=== PATIENT | female | born 1935 | race Caucasian/White ===

== ENCOUNTER → 2017-03-18 11:34 | Outpatient (CLI) | payer MEDICARE ==
[~2017-03-18 11:34] MED LIST: ASPIRIN EC81 M1 PO; CLARITIN 10 MG10 MG PO; FLAGYL500 MG PO; LEVAQUIN750 MG PO; NORVASC5 MG PO; OMEPRAZOLE40 MG PO; SPIRIVA18 MCG INH; TYLENOL W/CODEI1 TAB PO; ZOFRAN4 MG PO
[2017-04-30 11:01] VITALS: BMI 25.4
== END | disposition home or self-care (01) ==
LOC: D.RT 11:34
DX: J44.9 Chronic obstructive pulmonary disease, unspecified (principal)

== ENCOUNTER 2017-03-24 05:15 | Day surgery (SDC) | payer MEDICARE ==
[2017-03-23 10:15] LABS: BASOPHILS 0.4 % (0-2); EOSINOPHILS 0.6 % (0-7); HEMATOCRIT 40.4 % (36.0-48.0); HEMOGLOBIN 13.5 g/dL (12-16); IMMATURE GRANULOCYTES 0.1 % (0-5); LYMPHOCYTES 41.7 % (15-50); MCH 30.1 pg (26.0-34.0); MCHC 33.4 g/dL (31.0-37.0); MEAN PLATELET VOLUME 9.7 fL (7.4-10.4); MONOCYTES 6.3 % (2-11); NEUTROPHILS 50.9 % (40-80); PLATELET COUNT 223 10x3/uL (130-400); RBC 4.49 10x6/uL (4.00-5.40); RDW 12.9 % (11.5-14.5); WBC 6.7 10x3/uL (4.8-10.8)
[2017-03-23 10:30] LABS: CALCIUM 9.6 mg/dL (8.5-10.1); CARBON DIOXIDE 28.9 mmol/L (21.0-32.0); CREATININE - SERUM 0.8 mg/dL (0.6-1.3); POTASSIUM - SERUM 3.9 mmol/L (3.5-5.1)
[~2017-03-24 05:15] MED LIST changes: -FLAGYL500 MG PO; -LEVAQUIN750 MG PO; -TYLENOL W/CODEI1 TAB PO; -ZOFRAN4 MG PO
[2017-03-24 06:53] VITALS: BP 154/87; BMI 25.6
[2017-03-24] MEDS ORDERED: TYLENOL W/CODEI1 TAB PO (11:34)
--- NOTE | 2017-03-24 12:04 | OP ---
PATIENT NAME: MARCOS MACK MEDICAL RECORD: [id number] :34 LOCATION:D.OPS ADMISSION DATE: SURGEON: CHRIS GUARDADO MD DATE OF OPERATION: 03/24/2017 SURGEON: Chris Guardado MD ANESTHESIA: General anesthesia by Bryon Leggett CRNA. PREOPERATIVE DIAGNOSES: Incomplete bladder emptying and cystocele, grade II Gren[place]-Walker scale. PROCEDURE: Cystoscopy, urethral dilation to 34-Nauruan, and dissection for cystocele repair. The procedure was terminated due to injury to the bladder, which I repaired. BLOOD LOSS: Less than 100 mL. FINDINGS: Single ureteral orifices. Very large redundant bladder, grade II cystocele, bladder perforation close to but not involving the left ureteral orifice. CLINICAL HISTORY: This is an 81-year-old female, G4, P4, A0. She has a grade II Grenada-Walker scale cystocele and incomplete bladder emptying. 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 I sent her entered to the Gynecology, but she did not wish to have a pessary. She wanted to have a surgical repair. Risks of the procedure including risk of mesh infection, bleeding, pain, dyspareunia, and possible injury to adjacent organs such as the bladder or pelvic nerves was explained to the patient. Also, on her preoperative chest x-ray, there was noted some right lower lobe consolidation and hilar lymphadenopathy. She will probably need a chest CT as an outpatient. SHE IS ALLERGIC TO PENICILLIN. She was given Levaquin IV line controller to the OR. DESCRIPTION OF PROCEDURE: The patient was given induction of general anesthesia. She was then placed in dorsal lithotomy position and prepped and draped. I performed cystoscopy initially. A 17-Nauruan cystoscope was used with a 30-degree lens. We used normal saline for irrigation. She has single ureteral orifices. No bladder tumors were seen. I then dilated the urethra with sounds up to 34-Nauruan. At this point, we inserted a 16-Nauruan Aleman catheter and put it to bag drainage. A weighted speculum was placed to hold down the posterior vaginal wall. The labia majora were retracted laterally using #2 nylon sutures. These stay sutures were anchored to the medial thighs. The anterior vaginal wall was then infiltrated with Pitressin solution. Twenty units of Pitressin was dissolved in 100 mL of normal saline. This was injected in the anterior vaginal wall for hydrodissection. A transverse incision was made about 1 cm away from the urethral meatus at the level of the bladder neck. This was then dissected to free the bladder from the anterior vaginal wall. I noted that the bladder muscle was quite redundant. Also, it was seen to be rather soft and the tissues dissected away fairly easily just even with blunt dissection. We then perforated through the pubocervical fascia on each side. I was able to palpate the ischial spine on each side. The sacrospinous ligaments were anchored to the ischial spine and these formed our landmarks. I attempted to pass the graft arm of the [employer] OPERATIVE REPORT [id number] MARTINAMARCOS GANDHI Uphold graft using a Capio suture commercial front load driver through the sacrospinous ligament. This was performed on each side. I noted while attempting to pass the device that the bladder tissue kept getting stuck to the device and I had to use a finger to try to push the bladder tissue away. In passing the graft arms through, tension was put on the sutures and there was no sign that there was weak tissue that the suture was through. As I attempted to pull on the graft arms on each side to bring the graft down into position, I noticed that the graft arms were not through the sacrospinous ligaments, but we just at were through bladder muscle on each side. On the right side, I easily pulled the graft arm back out and freed it entirely. On the left side, the graft arm got stuck due to the presence of a clear plastic sheath material. In order to free the sheath, I had to divide the small band of muscle that was holding it in place. I used the Bovie to do this. Upon releasing the sheath with the Bovie, I noted immediately a gush of urine coming out of the bladder. Allis clamps were placed around the side of the bladder injury and I repaired the bladder injury site with 3-0 Vicryl. Running sutures were used. A cystoscopy was then performed again and I noted that the site of bladder injury was close to the left ureteral orifice. It did not involve the left ureteral orifice. At this point, we searched to see if a biological graft was available. There was none available in our graft refrigerator. The procedure therefore had to be terminated as I did not want to place the mesh graft in the presence of a recent bladder injury and repair. The vaginal mucosa was closed using running 4-0 Monocryl. The Aleman catheter was put back to bag drainage. She will go home with a Aleman catheter for a week and I will remove it in the office at that point. Vaginal packing was placed into the vagina. This will be removed prior to her going home later today. TRANSINT:[id number] Voice Confirmation ID: [id number] DOCUMENT ID: [id number] CHRIS GUARDADO MD at 1204 CC: [id number] DICTATION DATE: 03/24/17 1102 CANDY MAKER: 03/24/17 1120 PRE [facility] [address] [place] [address]
== END 2017-03-24 13:10 | disposition home or self-care (01) ==
LOC: D.OPS 05:15 → D.PAN 08:45 → D.OPS 13:10
PROVIDERS: Anesthesiology
DX: N81.10 Cystocele, unspecified (principal); N99.71 Accidental puncture and laceration of a genitourinary system organ or structure during a genitourinary system procedure; R33.9 Retention of urine, unspecified; N32.89 Other specified disorders of bladder; J44.9 Chronic obstructive pulmonary disease, unspecified; R59.1 Generalized enlarged lymph nodes; Z99.81 Dependence on supplemental oxygen; Z88.0 Allergy status to penicillin; Z01.812 Encounter for preprocedural laboratory examination

== ENCOUNTER 2017-04-29 11:04 | Inpatient (IN) | payer MEDICARE ==
[~2017-04-29] VITALS: Ht 162.6 cm; Wt 67.1 kg
--- NOTE | ~2017-04-29 | HEMODYNAMI ---
PATIENT:MARCOS MACK MEDICAL RECORD: [id number] : 34 LOCATION:[facility] [facility]2207 ADMISSION DATE: 04/29/17 Generatedon:05/05/201711:43 Patient name: MARCOS MACK Patient #: [id number] SSN: : 1935 Date of study: 05/05/2017 Page: Of Hemodynamic Procedure Report Patient Data Patient Demographics Procedure consent was obtained First Name: MARCOS Gender: Female Last Name: MARTINA : 1935 [facility] Initial: HIRAM Age: 81 year(s) Patient #: [id number] Race: Unknown Additional ID: [id number] Contact details Address: [address] [place] [address] ROAD State: [place] City: [place] Zip code: [address] Past Medical History Allergies Allergen Reaction Date Comments Reported Penicillins 05/05/2017 Admission Admission Data Admission Date: 04/29/2017 Admission Time: 16:12 Room #: D.2207 Procedure Procedure Types Cath Procedure Peripheral Cath Diagnostic Procedure Nephro Nephrostogram Thru Existing Miscellaneous Procedure Description Procedure Date Procedure Date: 05/05/2017 Procedure Start Time: 11:07 Procedure Staff Name Function Oleksandr Pino MD Performing Physician Ever Ruiz RT Monitor Sarah Padron RT Scrub Magdalene Logan RN Nurse Procedure Data Cath Procedure Fluoroscopy Diagnostic fluoroscopy Total fluoroscopy Time: 9.9 time: 9.9 min min Diagnostic fluoroscopy Total fluoroscopy dose: 51 dose: 51 mGy mGy Contrast Material Contrast Material Type Amount (ml) Isovue 300 20 Procedure Medications Medication Administration Route Dosage Versed I.V. 1 mg Fentanyl I.V. 50 mcg Versed I.V. 1 mg Fentanyl I.V. 50 mcg Hemodynamics Rest Heart Rate: 92 (bpm) Snapshots Pre Cath Intra NCS Post Cath Vital Signs Time Heart Resp SPO2 etCO2 NIBP (mmHg) Rhythm Pain Sedation Rate (ipm) (%) (mmHg) Status Level (bpm) 10:49:50 92 14 96 16.6 131/74(102) NSR 0 (11) 10(A) , No pain 10:54:02 89 11 24.2 126/68(91) NSR 0 (11) 10(A) , No pain 10:58:10 87 9 99 20.4 131/73(108) NSR 0 (11) 10(A) , No pain 11:02:24 88 10 99 26.5 123/66(102) NSR 0 (11) 10(A) , No pain 11:06:34 89 12 98 22.7 125/61(95) NSR 0 (11) 10(A) , No pain 11:10:48 85 19 98 3 115/57(92) NSR 0 (11) 10(A) , No pain 11:15:00 84 14 91 24.2 111/54(83) NSR 0 (11) 10(A) , No pain 11:19:08 84 13 90 20.4 120/61(95) NSR 0 (11) 10(A) , No pain 11:23:20 83 17 99 3 117/59(89) NSR 0 (11) 10(A) , No pain 11:27:32 81 12 96 3.7 111/55(88) NSR 0 (11) 10(A) , No pain 11:31:40 82 12 91 3.7 104/56(83) NSR 0 (11) 10(A) , No pain 11:35:45 80 12 90 3.7 110/56(77) NSR 0 (11) 10(A) , No pain 11:39:51 83 15 92 1.5 117/61(92) NSR 0 (11) 10(A) , No pain Medications Time Medication Route Dose Verified Delivered Reason Notes Effectivene ss by by 11:09:25 Versed I.V. 1 mg Oleksandr Bejaranoody for Alvarez Logan RN sedation 11:09:35 Fentanyl I.V. 50 Oleksandr Magdalene for mcg Alvarez Logan RN sedation 11:25:44 Versed I.V. 1 mg Oleksandr Magdalene for Alvarez Logan RN sedation 11:25:51 Fentanyl I.V. 50 Oleksandr Del Castillo for mcg Alvarez Logan RN sedation Procedure Log Time Note 10:36:20 Ever Ruiz RT (R) (CV) sent for patient. Start room use. 10:36:36 Time tracking: Regular hours 10:36:41 Plan of Care:Hemodynamics will remain stable., Cardiac rhythm will remain stable., Comfort level will be maintained., Respiratory function will remain adequate., Patient/ family verbilizes understanding of procedure., Procedure tolerated without complication., Recovers from procedure without complications.. 10:36:46 Patient received from Med/Surg to IR Alert and oriented. Tansferred to table in Prone position. 10:36:47 Correct patient and procedure confirmed by team. 10:36:49 Signed procedure consent form obtained from patient. 10:36:50 ECG and BP/O2 sat monitors applied to patient. 10:36:51 Full Disclosure recording started 10:36:52 - 10:36:55 H&P Date Dictated: 05/05/2017 Within 30 days and on chart.. 10:36:57 Pre-procedure instructions explained to patient. 10:36:57 Pre-op teaching completed and patient verbalized understanding. 10:37:00 Family in waiting room. 10:37:02 Patient NPO since Midnight. 10:37:52 Is the patient allergic to Iodine/contrast media? No. 10:37:54 Is patient on blood thinner?No 10:37:55 Patient diabetic? No. 10:37:56 - 10:37:57 ----Pre-sedation anethsthesia assessment.---- 10:38:00 Previous problem with sedation/anesthesia? No ? 10:38:06 Snore? No 10:38:08 Sleep apnea? No 10:38:09 Deviated septum? No 10:38:10 Opens mouth fully? Yes 10:38:11 Sticks out tongue? Yes 10:38:17 Dentures? Yes ? 10:38:27 Patient pain scale 0/10 no pain. 10:38:36 IV patent on arrival in left forearm with 0.9% NaCl at [facility]. 10:38:52 Use device set IR Diagnostic 10:38:53 Bag Decanter (2002S) opened to sterile field. 10:38:57 Sterile Angiographic Pack opened to sterile field. 10:48:49 Vital chart was started 10:48:50 Baseline sample Acquired. 10:49:10 Left abdomen area was prepped with chlora-prep and draped in sterile fashion 10:49:12 Alarms reviewed by R. N. 10:49:13 Sharps counted by scrub and verified by R.N. 10:57:51 Procedure type changed to Cath procedure, Peripheral Cath Diagnostic Procedure, Nephro, Nephrostogram Thru Existing, Miscellaneous 10:59:11 Patient allergic to Penicillins 11:05:50 Physician arrived 11:05:51 --------ALL STOP TIME OUT------ 11:05:51 Final Timeout: patient, procedure, and site verified with staff and physician. All members of the team are in agreement. 11:05:58 Left abdomen site verified by team. 11:06:20 Sedation plan: IV Moderate Sedation Medication:Versed, Fentanyl 11:07:30 Procedure started. 11:07:40 Local anesthetic to Abdominal area with Lidocaine 1% by Oleksandr Pino MD.INITIAL ACCESS ONLY 11:07:44 Terumo 5FR ANGLED 65CM glide catheter opened to sterile field. 11:07:44 Cook PHUONG .035 15CM guide wire opened to sterile field. 11:07:51 Cook PHUONG .035 15CM guide wire opened to sterile field. 11:08:53 SHEATH 7FR Destination (RSR04) opened to sterile field. 11:09:25 Versed 1 mg I.V. was administered by Magdalene Logan RN; for sedation; 11:09:35 Fentanyl 50 mcg I.V. was administered by Magdalene Logan RN; for sedation ; 11:14:[address] .035 145 glide wire opened to sterile field. 11:15:51 Trailblazer 0.035 catheter opened to sterile field. 11:20:05 Tegaderm 4 x 4 (1626W) opened to sterile field. 11:20:06 Tegaderm 4 x 4 (1626W) opened to sterile field. 11:25:27 CHOICE PT Extra Support J 300cm guide wire ([id number]) opened to steril e field. 11:25:44 Versed 1 mg I.V. was administered by Magdalene Logan RN; for sedation; 11:25:51 Fentanyl 50 mcg I.V. was administered by Magdalene Logan RN; for sedation ; 11:31:17 SUTURE ETHILON 2-0 BLK MONO FS opened to sterile field. 11:35:40 Procedure ended.(Physican Out) 11:40:10 Fluoroscopy time 09.90 minutes. 11:40:15 Fluoroscopy dose: 51 mGy 11:40:15 Flurop Dose total: 51 11:40:20 Contrast amount:Isovue 300 20ml. 11:40:21 Sharps counted by scrub and verified by R.N. 11:40:23 Insertion/operative site no bleeding no hematoma. 11:40:28 Post-op/insertion site Left Abdominal area dressed using a 4 x 4 and Tegaderm. 11:40:29 Post Procedure Pulses reassessed and unchanged 11:41:17 Post procedure instruction explained to patient.Patient verbalizes understanding. 11:42:11 Report given to Med/Surg. 11:42:15 Patient transfered to Med/Surg with Bed. 11:43:39 Vital chart was stopped Device Usage Item Name Manufacture Quantity Catalog Number Hospital Part Current [facility] Lot# / Charge Number Stock Stock Serial# Code Bag Decanter Microtek 1 [id number] 37582 [id number] 5 () Medical Inc. Sterile Cardinal 1 [id number] 564796 121345 5 Angiographic Health Pack Terumo 5FR Terumo 1 [id number] 358345 655020 5 ANGLED 65CM glide catheter Cook PHUONG [employer] 2 [id number] 394653 286569 5 7298129 .035 15CM [id number] guide wire SHEATH 7FR Terumo 1 RSR04 458976 936360 252066 5 Destination (RSR04) Cook [employer]land [employer] 1 [id number] 973536 637307 5 [id number] .035 145 glide wire Trailblazer Medtronic 1 [id number]-[id number] 633608 46106 103718 5 0.035 catheter Tegaderm 4 x 3M 2 1626W 407084 945720 571694 5 4 (1626W) CHOICE PT [place] 1 [id number] 132326 507971 889902 5 [id number] Extra Scientific Support J 300cm guide wire ([id number]) SUTURE Ethicon 1 664H 853576 975070 5 ETHILON 2-0 BLK MONO FS Signature Audit [place] Stage Time Signature Unsigned Intra-Procedure 05/05/2017 Ever 11:43:35 AM Joseph RT (R) (CV) Signatures Monitor : Ever Signature : Joseph RT Date : Time : [place] [address] [place] [address]
--- NOTE | ~2017-04-29 | HEMODYNAMI ---
PATIENT:MARCOS MACK MEDICAL RECORD: [id number] : 34 LOCATION:D.MS Rogers2207 ADMISSION DATE: 04/29/17 Generatedon:05/02/201713:36 Patient name: MARCOS MACK Patient #: [id number] SSN: : 1935 Date of study: 05/02/2017 Page: Of Hemodynamic Procedure Report Patient Data Patient Demographics Procedure consent was obtained First Name: MARCOS Gender: Female Last Name: MARTINA : 1935 [place] Initial: HIRAM Age: 81 year(s) Patient #: [id number] Race: Unknown Additional ID: [id number] Contact details Address: [address] [place] [address] ROAD State: [place] City: [place] Zip code: [address] Admission Admission Data Admission Date: 04/29/2017 Admission Time: 16:12 Room #: D.2207 Procedure Procedure Types Cath Procedure Peripheral Cath Diagnostic Procedure Miscellaneous Procedure Description Procedure Date Procedure Date: 05/02/2017 Procedure Start Time: 12:55 Procedure Staff Name Function Oleksandr Pino MD Performing Physician Ever Ruiz RT Monitor Sarah Padron RT Scrub Magdalene Logan RN Nurse Procedure Data Cath Procedure Fluoroscopy Diagnostic fluoroscopy Total fluoroscopy Time: time: 11.8 min 11.8 min Diagnostic fluoroscopy Total fluoroscopy dose: 202 dose: 202 mGy mGy Contrast Material Contrast Material Type Amount (ml) Isovue 300 15 Diagnostic catheters Device Type Used For End Catheter Placement Merit Impress KA2 5Fr 65CM catheter Procedure Medications Medication Administration Route Dosage Versed I.V. 1 mg Fentanyl I.V. 50 mcg unlisted medication Versed I.V. 1 mg Fentanyl I.V. 50 mcg Hemodynamics Rest Heart Rate: 94 (bpm) Snapshots Pre Cath Intra NCS Post Cath Vital Signs Time Heart Resp SPO2 etCO2 NIBP (mmHg) Rhythm Pain Sedation Rate (ipm) (%) (mmHg) Status Level (bpm) 12:37:06 33 20.9 131/79(108) NSR 0 (11) 10(A) , No pain 12:41:16 87 6 29.1 140/75(104) NSR 0 (11) 10(A) , No pain 12:45:28 89 7 29.8 129/73(104) NSR 0 (11) 10(A) , No pain 12:49:34 18 100 15.6 133/84(105) NSR 0 (11) 10(A) , No pain 12:53:47 92 10 29.8 124/66(98) NSR 0 (11) 10(A) , No pain 12:57:55 89 12 16.4 130/74(96) NSR 0 (11) 10(A) , No pain 13:02:09 85 15 100 28.3 113/62(86) NSR 0 (11) 10(A) , No pain 13:06:19 83 14 99 27.6 113/57(87) NSR 0 (11) 10(A) , No pain 13:10:27 86 16 98 28.3 116/64(85) NSR 0 (11) 10(A) , No pain 13:14:37 88 17 98 27.6 116/58(87) NSR 0 (11) 10(A) , No pain 13:18:47 86 16 97 28.3 112/59(81) NSR 0 (11) 10(A) , No pain 13:22:53 88 17 97 26.8 117/65(87) NSR 0 (11) 10(A) , No pain 13:27:02 87 15 97 24.6 117/68(93) NSR 0 (11) 10(A) , No pain 13:31:10 87 14 97 26.8 124/65(82) NSR 0 (11) 10(A) , No pain 13:35:22 85 28 97 26.1 112/62(84) NSR 0 (11) 10(A) , No pain Medications Time Medication Route Dose Verified Delivered Reason Notes Effectivene ss by by 13:01:07 Versed I.V. 1 mg Oleksandr Logan RN sedation 13:01:23 Fentanyl I.V. 50 Oleksandr felipe mcg Alvarez Logan RN sedation 13:06:03 cefepime Oleksandr Logan RN, MD 13:27:34 Versed I.V. 1 mg Oleksandr Del Castillo for Alvarez Logan RN sedation 13:27:42 Fentanyl I.V. 50 Oleksandr Del Castillo for [facility] Alvarez Logan RN sedation Procedure Log Time Note 12:18:47 Ever Ruiz RT (R) (CV) sent for patient. Start room use. 12:18:55 Time tracking: Regular hours 12:19:00 Plan of Care:Hemodynamics will remain stable., Cardiac rhythm will remain stable., Comfort level will be maintained., Respiratory function will remain adequate., Patient/ family verbilizes understanding of procedure., Procedure tolerated without complication., Recovers from procedure without complications.. 12:19:07 Patient received from Med/Surg to IR Alert and oriented. Tansferred to table in Prone position. 12:19:08 Correct patient and procedure confirmed by team. 12:19:10 Signed procedure consent form obtained from patient. 12:19:11 ECG and BP/O2 sat monitors applied to patient. 12:19:12 Full Disclosure recording started 12:19:13 - 12:19:16 H&P Date Dictated: 05/02/2017 Within 30 days and on chart.. 12:19:17 Pre-procedure instructions explained to patient. 12:19:17 Pre-op teaching completed and patient verbalized understanding. 12:19:19 Family in waiting room. 12:19:20 Patient NPO since Midnight. 12:19:24 Is the patient allergic to Iodine/contrast media? No. 12:19:26 Is patient on blood thinner?No 12:19:28 Patient diabetic? No. 12:19:30 - 12:19:30 ----Pre-sedation anethsthesia assessment.---- 12:19:33 Previous problem with sedation/anesthesia? No ? 12:19:35 Snore? No 12:19:36 Sleep apnea? No 12:19:37 Deviated septum? No 12:19:39 Opens mouth fully? No 12:19:41 Sticks out tongue? Yes 12:20:00 Airway obstruction? Yes ? 12:20:17 Dentures? No ? 12:20:24 Dentures? Yes ? 12:20:30 Use device set IR Diagnostic 12:20:31 Bag Decanter (2002S) opened to sterile field. 12:20:32 Sterile Angiographic Pack opened to sterile field. 12:35:24 Patient pain scale 0/10 no pain. 12:35:32 IV patent on arrival in right forearm with 0.9% NaCl at [facility]. 12:35:33 Sharps counted by scrub and verified by R.N. 12:35:34 Alarms reviewed by R. N. 12:35:39 Left abdomen area was prepped with chlora-prep and draped in sterile fashion 12:36:00 Vital chart was started 12:36:01 Baseline sample Acquired. 12:53:09 Physician arrived 12:53:10 --------ALL STOP TIME OUT------ 12:53:11 Final Timeout: patient, procedure, and site verified with staff and physician. All members of the team are in agreement. 12:53:14 Left abdomen site verified by team. 12:53:21 Sedation plan: IV Moderate Sedation Medication:Versed, Fentanyl 12:55:04 Procedure started. 12:55:28 Local anesthetic to Abdominal area with Lidocaine 1% by Oleksandr Pino MD.INITIAL ACCESS ONLY 12:55:40 KIT, INTRODUCER ACCUSTICK II W/C opened to sterile field. 12:55:41 STOPCOCK 3-WAY LARGE BORE opened to sterile field. 13:01:07 Versed 1 mg I.V. was administered by Magdalene Logan RN; for sedation; 13:01:23 Fentanyl 50 mcg I.V. was administered by Magdalene Logan RN; for sedation ; 13:05:07 [facility] .035 145 glide wire opened to sterile field. 13:06:03 cefepime was administered by Magdalene Logan RN; ; 13:07:21 A WIB Impress KA2 5Fr 65CM catheter was advanced over the wire and used for . 13:07:23 SHEATH 6FR Destination (RSR01) opened to sterile field. 13:09:13 DILATOR, VESSEL 7/20 opened to sterile field. 13:21:37 Terumo .035 180CM STRAIGHT TI glide wire opened to sterile field. 13:25:37 Abscession 8Fr drainage catheter opened to sterile field. 13:27:34 Versed 1 mg I.V. was administered by Magdalene Logan RN; for sedation; 13:27:42 Fentanyl 50 mcg I.V. was administered by Magdalene Logan RN; for sedation ; 13:30:01 SUTURE ETHILON 2-0 BLK MONO FS opened to sterile field. 13:30:08 Procedure ended.(Physican Out) 13:32:30 Fluoroscopy time 11.80 minutes. 13:32:38 Fluoroscopy dose: 202 mGy 13:32:38 Flurop Dose total: 202 13:33:06 Contrast amount:Isovue 300 15ml. 13:33:08 Sharps counted by scrub and verified by R.N. 13:33:11 Insertion/operative site no bleeding no hematoma. 13:33:16 Post-op/insertion site Left Abdominal area dressed using a 4 x 4 and Tegaderm. 13:34:57 Post Abdominal area:stable 13:35:00 Post procedure instruction explained to patient.Patient verbalizes understanding. 13:35:05 Procedure and supply charges have been captured, reviewed, submitted an d are correct. 13:36:03 Report given to Med/Surg. 13:36:06 Patient transfered to Med/Surg with Bed. 13:36:33 Vital chart was stopped Device Usage Item Name Manufacture Quantity Catalog Hospital Part Current [employer] [facility] Lot# / Number Charge Number Stock Stock Serial# Code Bag Decanter Microtek 1 186419 68626 [id number] 5 () Medical Inc. Sterile Cardinal 1 [id number] 562997 840966 5 Angiographic Health Pack KIT, [employer] 1 [id number] 577259 209678 627785 5 INTRODUCER Scientific ACCUSTICK II W/C STOPCOCK [facility] 1 [id number] 874913 0236 423267 5 [id number] 3-Way Large Bore (R36875) [employer] 1 [id number] 267806 194221 5 [id number] .035 [address] [facility] 1 [id number] 916765 762728 5 Impress KA2 5Fr 65CM catheter SHEATH 6FR Terumo 1 RSR01 454276 59351 218064 5 Destination (RSR01) DILATOR, [facility] 1 [id number] 326668 03053 893352 5 [id number] VESSEL 12/16 Terumo .035 Terumo 1 [id number] 463372 736560 5 180CM STRAIGHT TI glide wire Abscession Angiodynamics 1 [id number] 913376 600557 475496 5 8Fr drainage catheter SUTURE Ethicon 1 664 185058 919102 5 ETHILON 2-0 BLK MONO FS Signature Audit [place] Stage Time Signature Unsigned Intra-Procedure 05/02/2017 Ever 1:36:30 PM [place] RT (R) (CV) Signatures Monitor : Ever Signature : [place] RT Date : Time : [place] [id number] [place] [address]
[~2017-04-29 11:04] MED LIST changes: +TYLENOL W/CODEI1 TAB PO
--- NOTE | 2017-04-29 16:30 | NUR ---
RECEIVED TO ROOM 2207 FROM MD OFFICE. FAMILY IN ROOM. CALL LIGHT IN REACH. WILL CONTINUE WITH PLAN OF CARE.
[2017-04-29] MEDS ORDERED: FLAGYL500 MG PO (16:38)
[2017-04-29] MEDS ORDERED: ZOFRAN4 MG PO (16:38)
[2017-04-29] MEDS ORDERED: LEVAQUIN750 MG PO (16:38)
[2017-04-29 16:54] VITALS: BP 130/64; BMI 25.4
[2017-04-29 17:25] LABS: BASOPHILS 0.1 % (0-2); EOSINOPHILS 0.1 % (0-7); HEMATOCRIT 34.4 % (36.0-48.0); HEMOGLOBIN 11.7 g/dL (12-16); IMMATURE GRANULOCYTES 0.9 % (0-5); LYMPHOCYTES 17.5 % (15-50); MCH 29.5 pg (26.0-34.0); MCV 86.9 fL (80.0-100.0); MEAN PLATELET VOLUME 8.2 fL (7.4-10.4); MONOCYTES 6.1 % (2-11); NEUTROPHILS 75.3 % (40-80); RBC 3.96 10x6/uL (4.00-5.40); RDW 13.2 % (11.5-14.5); WBC 9.9 10x3/uL (4.8-10.8)
[2017-04-29 17:28] LABS: PLATELET COUNT 280 10x3/uL (130-400)
[2017-04-29 17:49] LABS: ALBUMIN 2.9 g/dL (3.4-5.0); ANION GAP 11.1 mmol/L (8-16); BILIRUBIN - TOTAL 0.22 mg/dL (0.2-1.3); CALCIUM 8.8 mg/dL (8.5-10.1); CARBON DIOXIDE 27.5 mmol/L (21.0-32.0); CREATININE - SERUM 1.3 mg/dL (0.6-1.3); POTASSIUM - SERUM 3.6 mmol/L (3.5-5.1); PROTEIN - SERUM 6.8 g/dL (6.4-8.2)
--- NOTE | 2017-04-29 19:04 | NUR ---
SMALL URINE SAMPLE COLLECTED AND SENT TO LAB FOR UA. NO OTHER CHANGES IN INITIAL ASSESSMENT. DAUGHTERS AT BEDSIDE. CALL LIGHT IN REACH. WILL CONTINUE WITH PLAN OF CARE.
--- NOTE | 2017-04-29 19:15 | NUR ---
RECEIVED CARE FROM DAY NURSE. PT IN HIGH FOWLERS POSITION WITH COMPANY AT SIDE. REPORTS NO NEEDS AT THIS TIME. IV TO RIGHT FA PATENT AND INFUSING PER ORDER. CALL LIGHT AT SIDE.
[2017-04-29 20:00] VITALS: BP 130/64
[2017-04-29 20:08] LABS: APPEARANCE CLEAR (CLEAR); BILIRUBIN NEGATIVE (NEGATIVE); COLOR STRAW (YELLOW); GLUCOSE NEGATIVE (NEGATIVE); KETONE NEGATIVE (NEGATIVE); NITRITE NEGATIVE (NEGATIVE); PROTEIN NEGATIVE (NEGATIVE); SPECIFIC GRAVITY 1.005 (1.005-1.020); UROBILINOGEN NORMAL (NORMAL)
[2017-04-29 20:10] LABS: EPITHELIAL CELLS 0-5 /hpf (0-5); WHITE CELLS - URINE 0-5 /hpf (0-5)
--- NOTE | 2017-04-29 23:15 | NUR ---
PATIENT RESTING QUIETLY WITH EYES CLOSED. NO SIGNS OF DISTRESS NOTED. BED IN LOWEST POSITION, CALL LIGHT IN REACH. BED RIALS UP X'S 2. PATIENT'S FAMILY MEMBER IN RECLINER, SHE DENIES NEEDS.
[2017-04-30] VITALS (10 sets, daily range): BP systolic 101–145; BP diastolic 49–70; Ht 162.6 cm; Wt 67.1 kg
[2017-04-30 04:20] LABS: BASOPHILS 0.2 % (0-2); EOSINOPHILS 0.6 % (0-7); HEMATOCRIT 31.9 % (36.0-48.0); HEMOGLOBIN 10.7 g/dL (12-16); IMMATURE GRANULOCYTES 1.1 % (0-5); LYMPHOCYTES 26.1 % (15-50); MCH 29.2 pg (26.0-34.0); MCHC 33.5 g/dL (31.0-37.0); MCV 86.9 fL (80.0-100.0); MEAN PLATELET VOLUME 8.4 fL (7.4-10.4); MONOCYTES 9.6 % (2-11); NEUTROPHILS 62.4 % (40-80); PLATELET COUNT 286 10x3/uL (130-400); RBC 3.67 10x6/uL (4.00-5.40); RDW 13.4 % (11.5-14.5)
[2017-04-30 04:21] LABS: WBC 5.4 10x3/uL (4.8-10.8)
[2017-04-30 04:41] LABS: ALBUMIN 2.5 g/dL (3.4-5.0); ANION GAP 10.7 mmol/L (8-16); BILIRUBIN - TOTAL 0.3 mg/dL (0.2-1.3); CALCIUM 8.4 mg/dL (8.5-10.1); CREATININE - SERUM 1.2 mg/dL (0.6-1.3); POTASSIUM - SERUM 3.7 mmol/L (3.5-5.1); PROTEIN - SERUM 5.7 g/dL (6.4-8.2)
--- NOTE | 2017-04-30 07:14 | NUR ---
REPORT RECEIVED FROM PHOTO PRODUCER NURSE. CALL LIGHT IN REACH.
[2017-04-30 07:15] LABS: APPEARANCE CLEAR (CLEAR); BILIRUBIN NEGATIVE (NEGATIVE); COLOR YELLOW (YELLOW); GLUCOSE NEGATIVE (NEGATIVE); KETONE NEGATIVE (NEGATIVE); NITRITE NEGATIVE (NEGATIVE); PROTEIN NEGATIVE (NEGATIVE); SPECIFIC GRAVITY 1.005 (1.005-1.020); UROBILINOGEN NORMAL (NORMAL)
--- NOTE | 2017-04-30 08:42 | NUR ---
ASSESSMENT COMPLETED. PREOP MEDS ADMINISTERED. FAMILY IN ROOM. CALL LIGHT IN REACH. WILL CONTINUE WITH PLAN OF CARE.
--- NOTE | 2017-04-30 10:05 | NUR ---
WAITING TO GO TO SURGERY AT THIS TIME.
--- NOTE | 2017-04-30 11:06 | NUR ---
RESTING QUIETLY IN BED. FAMILY IN ROOM. WAITING FOR SURGERY AT THIS TIME. DENIES NEEDS. OFF FLOOR VIA BED TO SURGERY.
--- NOTE | 2017-04-30 11:08 | NUR ---
TO OR VIA BED.
--- NOTE | 2017-04-30 12:35 | NUR ---
RECEIVED BACK TO ROOM FROM RECOVERY ROOM VIA BED. VS 98.3 TEMPORAL, BP 138/70 LEFT ARM, HR 84, RESP 16, AND O2 SAT 97% ON 2L PER NC. STATES SHE IS HAVING GAS PAINS AT THIS TIME BUT DOES NOT WANT ANYTHING FOR PAIN. REGULAR LUNCH TRAY ORDERED AT THIS TIME. FAMILY IN ROOM. CALL LIGHT IN REACH. WILL CONTINUE WITH PLAN OF CARE.
--- NOTE | 2017-04-30 14:46 | NUR ---
100% ON 2L PER NC. O2 DECREASED TO 1L PER NC.
--- NOTE | 2017-04-30 16:28 | NUR ---
VSS. NO NEEDS VOICED AT THIS TIME. CALL LIGHT IN REACH.
--- NOTE | 2017-04-30 18:42 | NUR ---
NO CHANGES IN INITIAL ASSESSMENT. CALL LIGHT IN REACH. DAUGHTER IN ROOM. WILL CONTINUE WITH PLAN OF CARE.
[2017-05-01] VITALS (7 sets, daily range): BP systolic 102–144; BP diastolic 52–79
[2017-05-01 04:48] LABS: BASOPHILS 0.3 % (0-2); EOSINOPHILS 0.7 % (0-7); HEMATOCRIT 31.1 % (36.0-48.0); HEMOGLOBIN 10.4 g/dL (12-16); IMMATURE GRANULOCYTES 0.4 % (0-5); LYMPHOCYTES 24.2 % (15-50); MCH 29.5 pg (26.0-34.0); MCHC 33.4 g/dL (31.0-37.0); MCV 88.4 fL (80.0-100.0); MEAN PLATELET VOLUME 8.3 fL (7.4-10.4); MONOCYTES 7.8 % (2-11); NEUTROPHILS 66.6 % (40-80); PLATELET COUNT 276 10x3/uL (130-400); RBC 3.52 10x6/uL (4.00-5.40); RDW 13.7 % (11.5-14.5); WBC 6.7 10x3/uL (4.8-10.8)
[2017-05-01 05:21] LABS: ALBUMIN 2.2 g/dL (3.4-5.0); ANION GAP 10.3 mmol/L (8-16); BILIRUBIN - TOTAL 0.2 mg/dL (0.2-1.3); CARBON DIOXIDE 25.3 mmol/L (21.0-32.0); CREATININE - SERUM 1.1 mg/dL (0.6-1.3); POTASSIUM - SERUM 3.6 mmol/L (3.5-5.1); PROTEIN - SERUM 5.3 g/dL (6.4-8.2)
--- NOTE | 2017-05-01 07:25 | NUR ---
REPORT RECEIVED FROM DUCTFIXING PLUMBER NURSE. CALL LIGHT IN REACH.
--- NOTE | 2017-05-01 09:26 | NUR ---
ASSESSMENT COMPLETED. [facility] HELD D/T LOW BP. FAMILY IN ROOM. CALL LIGHT IN REACH. WILL CONTINUE WITH PLAN OF CARE.
--- NOTE | 2017-05-01 11:00 | NUR ---
SHOWER WAS GIVEN TO PATIENT WITH ASSISTANCE FROM GARY MATT.
--- NOTE | 2017-05-01 13:59 | NUR ---
NO NEEDS VOICED AT THIS TIME. CALL LIGHT IN REACH.
--- NOTE | 2017-05-01 15:20 | NUR ---
DENIES NEEDS AT THIS TIME. FAMILY IN ROOM. CALL LIGHT IN REACH.
--- NOTE | 2017-05-01 17:13 | NUR ---
DR. GUARDADO HERE TO SEE PATIENT.
--- NOTE | 2017-05-01 18:31 | NUR ---
NO CHANGES IN INITIAL ASSESSMENT. FAMILY IN ROOM. CALL LIGHT IN REACH. WILL CONTINUE WITH PLAN OF CARE.
--- NOTE | 2017-05-01 19:15 | NUR ---
PT IN BED WITH EYES OPEN WITH FAMILY AT BEDSIDE. NO CONCERNS MADE KNOWN. RECEIVING NS AT 80ML/HR VIA RIGHT FOREARM IV. NO COMPLAINTS OF PAIN. CALL LIGHT IN REACH. WILL CONTINUE TO OBSERVE.
--- NOTE | 2017-05-01 21:55 | NUR ---
PT IN BED WITH EYES CLOSED AND CHEST RISING. NO CONCERNS NOTED. FAMILY AT BEDSIDE. CALL LIGHT IN REACH. WILL CONTINUE TO OBSERVE.
[2017-05-02] VITALS (12 sets, daily range): BP systolic 101–124; BP diastolic 57–86
--- NOTE | 2017-05-02 00:27 | NUR ---
PT IN BED WITH EYES CLOSED AND CHEST RISING. FAMILY IN ROOM SLEEPING. NO S/S OF DISTRESS NOTED. CALL LIGHT IN REACH. WILL CONTINUE TO OBSERVE.
--- NOTE | 2017-05-02 02:46 | NUR ---
PT IN BED WITH EYES CLOSED AND CHEST RISING. FAMILY SLEEPING AT BEDSIDE IN RECLINING CHAIR. NO S/S OF DISTRESS NOTED. CALL LIGHT IN REACH. WILL CONTINUE TO OBSERVE.
[2017-05-02 03:26] LABS: BASOPHILS 0.1 % (0-2); EOSINOPHILS 0.8 % (0-7); HEMATOCRIT 30.6 % (36.0-48.0); HEMOGLOBIN 10.1 g/dL (12-16); IMMATURE GRANULOCYTES 0.3 % (0-5); LYMPHOCYTES 23.7 % (15-50); MCH 29.3 pg (26.0-34.0); MCV 88.7 fL (80.0-100.0); MEAN PLATELET VOLUME 8.3 fL (7.4-10.4); MONOCYTES 8.3 % (2-11); NEUTROPHILS 66.8 % (40-80); PLATELET COUNT 289 10x3/uL (130-400); RBC 3.45 10x6/uL (4.00-5.40); RDW 13.7 % (11.5-14.5); WBC 7.6 10x3/uL (4.8-10.8)
[2017-05-02 03:58] LABS: ALBUMIN 2.1 g/dL (3.4-5.0); ANION GAP 9.3 mmol/L (8-16); BILIRUBIN - TOTAL 0.22 mg/dL (0.2-1.3); CALCIUM 7.7 mg/dL (8.5-10.1); CARBON DIOXIDE 25.6 mmol/L (21.0-32.0); POTASSIUM - SERUM 3.9 mmol/L (3.5-5.1)
--- NOTE | 2017-05-02 07:18 | NUR ---
REPORT RECEIVED FROM SAFETY PIN ASSEMBLING MACHINE OPERATOR NURSE. CALL LIGHT IN REACH.
--- NOTE | 2017-05-02 07:22 | NUR ---
REPORT RECEIVED FROM EQUIPMENT SALES SPECIALIST NURSE. CALL LIGHT IN REACH.
--- NOTE | 2017-05-02 08:00 | NUR ---
ASSESSMENT COMPLETED. REFUSES SCDs AT THIS TIME. NPO FOR PROCEDURE THIS AM. DAUGHTER AT BEDSIDE. CALL LIGHT IN REACH. WILL CONTINUE WITH PLAN OF CARE.
[2017-05-02 10:25] LABS: INR 1.09 (0.85-1.17); PROTIME 13.7 SECONDS (11.6-15.0)
[2017-05-02 10:26] LABS: APTT 35.2 SECONDS (22.8-39.4)
--- NOTE | 2017-05-02 10:43 | NUR ---
AJITH LARA WITH A SIP OF WATER. CONSENT FORM SIGNED AND WITNESSED.
--- NOTE | 2017-05-02 11:25 | NUR ---
1/2NS INITIATED FOR PROCEDURE. IV TUBING CHANGED PER HOSPITAL POLICY AND TUESDAY STICKER PLACED ON TUBING. FAMILY IN ROOM. STILL NOT WANTING SCDs. CALL LIGHT IN REACH.
--- NOTE | 2017-05-02 12:15 | NUR ---
TO RADIOLOGY VIA BED.
--- NOTE | 2017-05-02 12:49 | NUR ---
NUTRITION F/U PT CURRENTLY REMAINS NPO FOR PROCEDURE. WILL MONITOR DIET ADVANCEMENT, PO INTAKE. RD FOLLOWING
--- NOTE | 2017-05-02 12:51 | OP ---
PATIENT NAME: MARCOS MACK MEDICAL RECORD: [id number] :34 LOCATION:[id number] ADMISSION DATE:04/29/17 SURGEON: ZIYAD GUARDADO MD DATE OF OPERATION: 04/30/2017 SURGEON: Ziyad Guardado MD ANESTHESIA: General anesthesia by Huseyin Renee CRNA. PREOPERATIVE DIAGNOSES: Left hydroureteronephrosis, left ureterovesical junction stricture. PROCEDURES: Cystoscopy and left retrograde Pyelogram. FINDINGS: Left hydroureteronephrosis due to stenosis at the UV junction or intramural ureter. I am unable to get a guidewire to enter into the left ureteral orifice. BLOOD LOSS: None. CLINICAL HISTORY: This is an 81-year-old female who has a cystocele grade II-III in the [place] walker scale. On 03/24/2017, she came to have a repair of the cystocele. During the dissection, a suture passing device placed a suture through her bladder. As a result, procedure was terminated as I only had mesh available and no fascial grafts were available. I did repair the site of bladder puncture, which was on the left lateral wall of the bladder using a running 4-0 Vicryl or other absorbable suture. She now comes to the hospital with left flank pain for the past week. This was associated with nausea and vomiting. CT scan shows left hydroureteronephrosis down to the left distal ureter. I was concerned that the stitch may have caused compression of the left distal ureter. She comes today to have cystoscopy, ureteroscopy and hopefully balloon dilation of any stricture zone. SHE IS ALLERGIC TO PENICILLIN. I gave her Levaquin tangible personal property appraiser to the OR. DESCRIPTION OF PROCEDURE: The patient was given induction of general anesthesia. She was placed in the dorsal lithotomy position and prepped and draped. Cystoscopy was performed. No bladder tumors were seen. Single ureteral orifices are seen on each side. The left lateral wall at some distance away from the ureteral orifice shows a bit of scarring from the site of the bladder repair. The bladder has fully healed here. The left ureteral orifice had the opening intubated with a 5-Setswana open-ended ureteral catheter. Contrast diluted 1:1 was injected. We noted significant resistance to injection of the contrast in retrograde form. There was hydroureteronephrosis of the distal ureter and it extended proximally up to the kidney. However, I could not find any area of focal stenosis proximal to the ureteral orifice. Attempts to put a guidewire were unsuccessful. We also attempted to do this through a cone tipped catheter and again the wire would not pass into the ureteral orifice. The wire kept kicking back right at the ureteral orifice opening. At this point, I did not wish to cause any further injury and therefore the bladder was emptied through the cystoscope and the procedure was terminated. I will arrange for interventional radiology to insert a left nephrostomy tube on Tuesday. While they do that, hopefully they can go down to the distal ureter and balloon, dilate the stricture zone as well as place the stent there. TRANSINT:[id number] Voice Confirmation ID: [id number] DOCUMENT ID: [id number] OPERATIVE REPORT [id number] MARCOS MACK ROBERT S MD at 1251 CC: [id number] DICTATION DATE: 04/30/17 1210 AVIATION TECHNICIAN: 04/30/17 2225 [facility] [address] [place] [address]
--- NOTE | 2017-05-02 14:00 | NUR ---
RECEIVED BACK TO ROOM VIA BED. VSS. LEFT NEPHROSTOMY BACK WITH PINK TINGED URINE IN BAG. FAMILY IN ROOM. CALL LIGHT IN REACH.
[2017-05-02 14:40] LABS: APPEARANCE HAZY (CLEAR); BACTERIA FEW /hpf (NONE SEEN); BILIRUBIN NEGATIVE (NEGATIVE); COLOR STRAW (YELLOW); GLUCOSE NEGATIVE (NEGATIVE); KETONE NEGATIVE (NEGATIVE); NITRITE NEGATIVE (NEGATIVE); PROTEIN NEGATIVE (NEGATIVE); RED CELLS - URINE >50 /hpf (0-5); SPECIFIC GRAVITY 1.005 (1.005-1.020); UROBILINOGEN NORMAL (NORMAL)
--- NOTE | 2017-05-02 16:20 | NUR ---
DENIES NEEDS AT THIS TIME. CALL LIGHT IN REACH.
--- NOTE | 2017-05-02 18:38 | NUR ---
PT SITTING UP AT BEDSIDE,WITHOUT DISTRESS.
--- NOTE | 2017-05-02 22:00 | NUR ---
EMPTIED 210ML OF PINK TINGED FLUID FROM NEPHROSTOMY TUBE. FLUSHED WITH 10ML AT THIS TIME. O2 2L NC. FAMILY AT BEDSIDE, CALL LIGHT IN REACH. WILL CONTINUE WITH PLAN OF CARE.
[2017-05-03 04:00] VITALS: BP 111/55
[2017-05-03 05:35] LABS: BASOPHILS 0.1 % (0-2); EOSINOPHILS 1.2 % (0-7); HEMATOCRIT 36.1 % (36.0-48.0); HEMOGLOBIN 11.8 g/dL (12-16); IMMATURE GRANULOCYTES 0.3 % (0-5); LYMPHOCYTES 34.2 % (15-50); MCH 29.1 pg (26.0-34.0); MCHC 32.7 g/dL (31.0-37.0); MCV 88.9 fL (80.0-100.0); MEAN PLATELET VOLUME 8.4 fL (7.4-10.4); MONOCYTES 6.6 % (2-11); NEUTROPHILS 57.6 % (40-80); PLATELET COUNT 328 10x3/uL (130-400); RBC 4.06 10x6/uL (4.00-5.40); RDW 13.7 % (11.5-14.5); WBC 7.7 10x3/uL (4.8-10.8)
[2017-05-03 05:55] LABS: ALBUMIN 2.3 g/dL (3.4-5.0); ANION GAP 10.2 mmol/L (8-16); BILIRUBIN - TOTAL 0.3 mg/dL (0.2-1.3); CALCIUM 8.4 mg/dL (8.5-10.1); CARBON DIOXIDE 27.6 mmol/L (21.0-32.0); CREATININE - SERUM 0.9 mg/dL (0.6-1.3); POTASSIUM - SERUM 3.8 mmol/L (3.5-5.1); PROTEIN - SERUM 5.9 g/dL (6.4-8.2)
--- NOTE | 2017-05-03 08:23 | NUR ---
AWAKE AND ALERT. ORIENTED X3. NO C/O AT THIS TIME. LUNGS ARE CLEAR BILATERALLY, NO COUGH NOTED. SKIN IS INTACT WITHOUT REDNESS EXCEPT NEPHROSTOMY TUBE INSERTION SITE, WHICH HAS A DRY INTACT DRESSING IN PLACE. EMPTIED 300 CC PINKISH FLLUID FROM SAME. IV TO RIGHT FOREARM IS PATENT WITHOUT REDNESS AT INSERTION SITE. DENIES NEEDS. ENCOURAGED TO BE OOB.
[2017-05-03 09:11] VITALS: BP 141/85
--- NOTE | 2017-05-03 09:19 | NUR ---
Patient Name: MARCOS MACK Admission Status: Elective Accout number: [id number] Admission Date: 04-29-2017 : 1935 Admission Diagnosis: Attending: GABBY WEBB Current LOS: 4 Anticipated DC Date: Planned Disposition: Home Primary Insurance: MEDICARE A & B Discharge Planning Comments: CM met with patient to assess discharge planning needs. At this time the patient lives in a Trailer on the same property as her daughter. She would like to return there at discharge. She has home O2 where she gets from [employer] and a chair in her shower. We spoke at length about home health, she is open to it, but not sure. Her daughter Brigitte will be the one to drive her home at discharge. CM will continue to follow and assist with discharge planning needs. [facility] [address] Brigitte Ferrara ([phone]) Personnel Security Assistant: Keisha Mares * Is the patient Alert and Oriented? Yes 0 * How many steps to enter\exit or inside your home? 4 0 * PCP Devon 0 * Pharm[facility] [address] 0 * Preadmission Environment Home with Family 0 * ADLs Independent 0 * Equipment Oxygen Shower Chair 0 * Other Equipment O2 from [facility] 0 * List name and contact numbers for known caregivers / representatives who currently or will assist patient after discharge: Brigitte Ferrara ( daughter) [phone] 0 * Community resources currently utilized None 0 * Additional services required to return to the preadmission environment? Yes 0 * Can the patient safely return to the preadmission environment? Yes 0 * Has this patient been hospitalized within the prior 30 days at any hospital? No 0 Grand Total: 0
[2017-05-03 11:56] VITALS: BP 146/81
--- NOTE | 2017-05-03 12:00 | NUR ---
UP TO BR WITH FAMILY'S ASSISTANCE. VOIDED WITHOUT DIFFICULTY. NEPHROSTOMY TUBE WITH LARGE VOLUMN OUTPUT PINK TINGED FLUIDS.
--- NOTE | 2017-05-03 15:13 | NUR ---
NUTRITION F/U CHART REVIEWED, PT VISIT. TOLERATING REG DIET WITH 75% AVERAGE INTAKE RECENT MEALS. WILL CONTINUE TO PROVIDE DIET, MONITOR PO INTAKE. RD FOLLOWING
[2017-05-03 15:23] VITALS: BP 104/50
--- NOTE | 2017-05-03 16:00 | NUR ---
LONG DISSCUSSION WITH PATIENT AND FAMILY RE USE OF WALKER FOR SAFETY. PATIENT VERBALIZED UNDERSTANDING OF SAME.
[2017-05-03 20:00] VITALS: BP 144/72
--- NOTE | 2017-05-03 22:49 | NUR ---
rec'd. in bed daughter at bed side.drsg. to nephrostomy drain dry and intact emptied 450cc. flushed with 10cc ns as ordered. denies any pain or discomfort at present time. refuses scd's.will continue to monitor for any chges. and monitor current plan of care
[2017-05-04 04:00] VITALS: BP 137/74
[2017-05-04 04:23] LABS: BASOPHILS 0.2 % (0-2); EOSINOPHILS 2.2 % (0-7); HEMATOCRIT 32.2 % (36.0-48.0); HEMOGLOBIN 10.8 g/dL (12-16); IMMATURE GRANULOCYTES 0.4 % (0-5); LYMPHOCYTES 33.6 % (15-50); MCH 29.6 pg (26.0-34.0); MCHC 33.5 g/dL (31.0-37.0); MCV 88.2 fL (80.0-100.0); MEAN PLATELET VOLUME 8.4 fL (7.4-10.4); NEUTROPHILS 54.6 % (40-80); PLATELET COUNT 308 10x3/uL (130-400); RBC 3.65 10x6/uL (4.00-5.40); RDW 13.7 % (11.5-14.5)
[2017-05-04 04:24] LABS: WBC 4.6 10x3/uL (4.8-10.8)
[2017-05-04 04:42] LABS: ALBUMIN 2.2 g/dL (3.4-5.0); ANION GAP 11.1 mmol/L (8-16); BILIRUBIN - TOTAL 0.2 mg/dL (0.2-1.3); CALCIUM 8.1 mg/dL (8.5-10.1); CARBON DIOXIDE 28.1 mmol/L (21.0-32.0); CREATININE - SERUM 0.9 mg/dL (0.6-1.3); PROTEIN - SERUM 5.4 g/dL (6.4-8.2)
[2017-05-04 04:43] LABS: POTASSIUM - SERUM 3.2 mmol/L (3.5-5.1)
--- NOTE | 2017-05-04 05:00 | NUR ---
EYES CLOSED RESPIRATIONS WITH EASE AND UNLABORED.
[2017-05-04 07:57] VITALS: BP 111/66
[2017-05-04 12:30] VITALS: BP 115/55
--- NOTE | 2017-05-04 14:42 | NUR ---
RT ENTERED ROOM TO ADMINISTER BREATHING TREATMENT. PATIENT WITH LABORED BREATHING. SP02 78% ON 6L NC. RN NOTIFIED. PLACED PATIENT ON NRB MASK FOR SOB AND AIR HUNGER.
[2017-05-04 15:47] VITALS: BP 130/68
--- NOTE | 2017-05-04 18:15 | NUR ---
LYING IN BED,WITHOUT DISTRESS.FAMILY AT BEDSIDE
[2017-05-04 20:00] VITALS: BP 128/63
--- NOTE | 2017-05-04 20:05 | NUR ---
REC'D. IN BED. EYES CLOSED RESP. DEEP AND EVEN.FAMILY AT BEDSIDE WILL CONTINUE TO MONITOR FOR ANY CHGES. AND FOLLOW CURRENT PLAN OF CARE.
[2017-05-05] VITALS (12 sets, daily range): BP systolic 107–132; BP diastolic 50–73
[2017-05-05 04:30] LABS: BASOPHILS 0.3 % (0-2); EOSINOPHILS 1.5 % (0-7); HEMATOCRIT 30.2 % (36.0-48.0); HEMOGLOBIN 10.1 g/dL (12-16); IMMATURE GRANULOCYTES 0.3 % (0-5); LYMPHOCYTES 40.1 % (15-50); MCH 29.6 pg (26.0-34.0); MCHC 33.4 g/dL (31.0-37.0); MCV 88.6 fL (80.0-100.0); MEAN PLATELET VOLUME 8.3 fL (7.4-10.4); MONOCYTES 9.6 % (2-11); NEUTROPHILS 48.2 % (40-80); PLATELET COUNT 260 10x3/uL (130-400); RBC 3.41 10x6/uL (4.00-5.40); RDW 13.8 % (11.5-14.5); WBC 3.9 10x3/uL (4.8-10.8)
[2017-05-05 04:47] LABS: CALC OSMOLALITY 284 mosm/kg (275-300); CALCIUM 7.9 mg/dL (8.5-10.1); CARBON DIOXIDE 30.7 mmol/L (21.0-32.0); CHLORIDE - SERUM 108 mmol/L (98-107); CREATININE - SERUM 0.7 mg/dL (0.6-1.3); GLUCOSE 93 mg/dL (74-106); POTASSIUM - SERUM 3.5 mmol/L (3.5-5.1); SODIUM 144 mmol/L (136-145); UREA NITROGEN 7 mg/dL (7-18); eGFR NON AFRICAN AMERICAN 85 mL/min (90-120)
[2017-05-05 04:51] LABS: APTT 31.7 SECONDS (22.8-39.4); INR 1.06 (0.85-1.17); PROTIME 13.4 SECONDS (11.6-15.0)
--- NOTE | 2017-05-05 08:10 | NUR ---
ASSESSMENT COMPLETE. IV TO L FA PATENT. NS WITH 20 KCL INFUSING AT 75 CC/HR VIA PUMP. NPO FOR PROCEDURE TODAY. O2 2L NC IN USE. L NEPHROSTOMY TUBE TO DRAINAGE. FAMILY AT BEDSIDE.
--- NOTE | 2017-05-05 10:30 | NUR ---
OFF FLOOR TO IR VIA BED.
--- NOTE | 2017-05-05 11:57 | NUR ---
RETURNED TO ROOM FROM IR VIA BED. VSS. NEPHROSTOMY REMAINS IN PLACE TO L FLANK. DR GUARDADO BY TO SEE PATIENT. DAUGHTER AT BEDSIDE. RESULTS EXPLAINED TO DAUGHTER WITH DR GUARDADO'S PLANS.
--- NOTE | 2017-05-05 15:00 | NUR ---
VSS. VISITING WITH FAMILY AT BEDSIDE.
--- NOTE | 2017-05-05 18:13 | NUR ---
DENIES ANY NEEDS AT THIS TIME.
[2017-05-06 04:00] VITALS: BP 114/55
[2017-05-06 04:05] LABS: BASOPHILS 0.3 % (0-2); EOSINOPHILS 2.1 % (0-7); HEMATOCRIT 30.7 % (36.0-48.0); HEMOGLOBIN 9.9 g/dL (12-16); IMMATURE GRANULOCYTES 0.3 % (0-5); MCH 28.9 pg (26.0-34.0); MCHC 32.2 g/dL (31.0-37.0); MCV 89.5 fL (80.0-100.0); MEAN PLATELET VOLUME 8.7 fL (7.4-10.4); MONOCYTES 6.1 % (2-11); NEUTROPHILS 49.2 % (40-80); PLATELET COUNT 303 10x3/uL (130-400); RBC 3.43 10x6/uL (4.00-5.40); RDW 13.8 % (11.5-14.5); WBC 3.8 10x3/uL (4.8-10.8)
[2017-05-06 04:20] LABS: CALC OSMOLALITY 281 mosm/kg (275-300); CALCIUM 7.9 mg/dL (8.5-10.1); CARBON DIOXIDE 29.1 mmol/L (21.0-32.0); CHLORIDE - SERUM 108 mmol/L (98-107); CREATININE - SERUM 0.6 mg/dL (0.6-1.3); GLUCOSE 86 mg/dL (74-106); SODIUM 143 mmol/L (136-145); UREA NITROGEN 8 mg/dL (7-18); eGFR NON AFRICAN AMERICAN > 90 mL/min (90-120)
--- NOTE | 2017-05-06 07:45 | NUR ---
ASSESSMENT COMPLETE. IV TO L FA PATENT. NS WITH 20 KCL INFUSING AT 75 CC/HR VIA PUMP. O2 2L NC IN USE. L NEPHROSTOMY TUBE PATENT DRAINING BLOOD TINGED DRAINAGE INTO BILE BAG. FAMILY AT BEDSIDE. DENIES ANY NEEDS AT THIS TIME.
[2017-05-06 08:10] VITALS: BP 140/69
--- NOTE | 2017-05-06 11:39 | NUR ---
DR CONTE'S OFFICE CALLED BACK AND APPOINTMENT MADE FOR TuesdayApr AT 10:15AM. PATIENT TO BRING CD, MED LIST & INSURANCE CARD. PATIENT AND DAUGHTER INSTRUCTED AND VERBILIZES UNDERSTANDING
--- NOTE | 2017-05-06 11:49 | NUR ---
REFERRAL SENT TO [facility]
--- NOTE | 2017-05-06 14:30 | NUR ---
IV REMOVED. CATHETER TIP INTACT. DISCHARGE TEACHING GIVEN TO PATIENT AND FAMILY MEMBERS X 3. DAUGHTER DEMONSTRATED FLUSHING NEPHROSTOMY TUBE. 12 SALINE FLUSHES,URINAL, AND SHEET TO TRACK OUTPUT GIVEN TO PATIENT. INSTRUCTED TO KEEP DRESSING CLEAN AND DRY. VOICED UNDERSTANDING OF INSTRUCTIONS.
--- NOTE | 2017-05-06 15:03 | NUR ---
DC'D HOME WITH FAMILY. ESCORTED TO VEHICLE BY PULMONARY NURSE PRACTITIONER VIA WC WITH BELONGINGS.
== END 2017-05-06 15:03 | disposition home or self-care (01) | DRG 699 ==
LOC: D.CT 11:04 → D.MS 16:12
PROVIDERS: Family Medicine; Radiology Diagnostic Radiology; ADMIT Family Medicine
PROC: BT1F1ZZ Fluoroscopy of Left Kidney, Ureter and Bladder using Low Osmolar Contrast (ICD-10-PCS; principal; 2017-05-02 12:30)
PROC: BT121ZZ Fluoroscopy of Left Kidney using Low Osmolar Contrast (ICD-10-PCS; 2017-05-05)
PROC: 0W2JX0Z Change Drainage Device in Pelvic Cavity, External Approach (ICD-10-PCS; 2017-05-05)
DX: N99.89 Other postprocedural complications and disorders of genitourinary system (principal); N13.1 Hydronephrosis with ureteral stricture, not elsewhere classified

== ENCOUNTER 2017-11-16 10:04 | Emergency (ER) | payer MEDICARE ==
[~2017-11-16] VITALS: Ht 162.6 cm; Wt 54.5 kg
[~2017-11-16 10:04] MED LIST changes: +FLAGYL500 MG PO; +LEVAQUIN750 MG PO; +ZOFRAN4 MG PO
[2017-11-16 10:12] VITALS: Ht 162.6 cm; Wt 54.5 kg
[2017-11-16 11:11] LABS: BASOPHILS 0.1 % (0-2); EOSINOPHILS 0 % (0-7); HEMATOCRIT 35.8 % (36.0-48.0); IMMATURE GRANULOCYTES 0.3 % (0-5); LYMPHOCYTES 14.5 % (15-50); MCH 28.4 pg (26.0-34.0); MCHC 33.5 g/dL (31.0-37.0); MCV 84.6 fL (80.0-100.0); MEAN PLATELET VOLUME 9.6 fL (7.4-10.4); MONOCYTES 5.6 % (2-11); NEUTROPHILS 79.5 % (40-80); RBC 4.23 10x6/uL (4.00-5.40); RDW 13.3 % (11.5-14.5); WBC 9.3 10x3/uL (4.8-10.8)
[2017-11-16 11:12] LABS: PLATELET COUNT 210 10x3/uL (130-400)
[2017-11-16 11:32] LABS: ALBUMIN 3.7 g/dL (3.4-5.0); ALKALINE PHOSPHATASE 78 U/L (46-116); ALT (SGPT) 25 U/L (10-68); BILIRUBIN - TOTAL 0.48 mg/dL (0.2-1.3); CALC OSMOLALITY 271 mosm/kg (275-300); CALCIUM 9.8 mg/dL (8.5-10.1); CARBON DIOXIDE 30.5 mmol/L (21.0-32.0); CHLORIDE - SERUM 99 mmol/L (98-107); GLUCOSE 121 mg/dL (74-106); POTASSIUM - SERUM 3.6 mmol/L (3.5-5.1); PROTEIN - SERUM 7.8 g/dL (6.4-8.2); SODIUM 135 mmol/L (136-145); UREA NITROGEN 15 mg/dL (7-18); eGFR NON AFRICAN AMERICAN 56 mL/min (90-120)
[2017-11-16 11:50] LABS: CREATINE KINASE 162 UL (21-215); PRO BNP 782 pg/mL (0-450); TROPONIN-I < 0.017 ng/mL (0.000-0.060)
[2017-11-16 14:14] VITALS: BP 162/81
== END 2017-11-16 14:30 | disposition other institution (70) ==
LOC: D.ER 10:04
PROVIDERS: Family Medicine
DX: I63.9 Cerebral infarction, unspecified (principal); R41.82 Altered mental status, unspecified; R50.9 Fever, unspecified